=== PATIENT | male | born 2000 | race Caucasian/White ===

== ENCOUNTER 2020-01-16 08:32 | Day surgery (SDC) | payer SELFPAY ==
[2020-01-14 14:53] VITALS: BMI 26.3
[2020-01-16] MEDS ORDERED: Fentanyl 100 MCG/2 ML VIAL ONE ×2 (10:09→11:26)
[2020-01-16] MEDS ORDERED: Midazolam HCl 2 mg/2 ml Vial ONE ×2 (10:09→11:26)
[2020-01-16] MEDS ORDERED: Sodium Chloride 0.9% 10 ML ONE (11:28)
[2020-01-16] MEDS ORDERED: Bacitracin Zinc Ointment 30 gm TUBE ONE (11:28)
[2020-01-16] MEDS ORDERED: Bupivacaine PF 0.5% 30 ML VIAL ONE (11:28)
[2020-01-16] MEDS ORDERED: Bupivacaine HCl 0.5%/Epinephrine 1:200,000/PF 30 ml Vial ONE (12:31)
[2020-01-16] MEDS ORDERED: Ketorolac Tromethamine 30 MG/ML VIAL ONE (12:31)
[2020-01-16] MEDS ORDERED: Dexamethasone 20 MG/5 ML VIAL ONE (12:31)
[2020-01-16] MEDS ORDERED: Lidocaine 1% PF 5 ML VIAL ONE (12:31)
[2020-01-16] MEDS ORDERED: PROPOFOL 200 MG/20 ML VIAL ONE (12:31)
[2020-01-16] MEDS ORDERED: Ondansetron PF 4 MG/2 ML Vial ONE (12:31)
--- NOTE | 2020-01-16 14:10 | RAD ---
Left hand 3 views: HISTORY: ORIF left hand COMPARISON: 01/05/2020 FINDINGS: Metal plate and screws stabilize the fourth metacarpal. 3 internal fixation pins stabilize the fourth and fifth metacarpal hamate joints. IMPRESSION: Postoperative ORIF changes.
--- NOTE | 2020-01-18 19:18 | OP ---
DATE OF PROCEDURE: 01/16/2020 PREOPERATIVE DIAGNOSES: 1. Left small finger carpometacarpal joint dislocation. 2. Left ring finger carpometacarpal joint dislocation. 3. Ring finger metacarpal shaft fracture. 4. Hamate fracture, intra-articular. POSTOPERATIVE DIAGNOSES: 1. Left small finger carpometacarpal joint dislocation. 2. Left ring finger carpometacarpal joint dislocation. 3. Ring finger metacarpal shaft fracture. 4. Hamate fracture, intra-articular. FINDINGS: 1. Perched dislocation of small finger metacarpal with avulsion fracture of the hamate approximately 6 mm long, 3 mm deep, with capsule attached to it. 2. Approximately 50% subluxation of the ring finger metacarpal at the carpometacarpal joint with a 100% displaced angulated ring finger metacarpal shaft fracture. PROCEDURES PERFORMED: 1. C-arm supervision. 2. Open reduction and internal fixation of hamate avulsion fracture with K-wire. 3. Open reduction and internal fixation of dislocation of left small finger carpometacarpal joint with K-wire. 4. Open reduction and internal fixation of dislocation left ring finger carpometacarpal joint with K-wire. 5. Open reduction and internal fixation of metacarpal shaft fracture of left ring finger. TOURNIQUET TIME: 60 minutes. ESTIMATED BLOOD LOSS: 20 mL. DESCRIPTION OF PROCEDURE: After successful general endotracheal anesthesia, the limb was prepped and draped. The patient had a block performed already. We outlined a longitudinal incision to complete the approach to the ring finger metacarpal fracture and then come down to the midportion of the body of the hamate. We carried to the skin and subcutaneous tissue, protected appropriate extensor interval for the ring finger and removed periosteum. The fracture was displaced and reduced it anatomically with no evidence of malrotation, held this with a clamp. We then placed a 5-hole plate with 2 holes proximal and 3 holes distal to the fracture. Used standard drill measure and screw technique with [employer] variable angle handset. The patient then had the small finger and ring finger undergo reduction. First, we had to clean the small finger carpometacarpal joint to remove bone fragments. Discovered the displaced fragment, which was locking the joint and prevented closed reduction and had the capsule attached to it. We removed this. We irrigated the joint and then reduced both joints synchronously with an audible clunk. We then placed 0.045 K-wire across each joint. C-arm confirmed excellent position. We then placed a small 0.035 K-wire in avulsion fracture. C-arm helped us adjust position of this until it was excellent. We cut the pins just short of the bone interface, released the tourniquet, obtained hemostasis. We closed the capsule using a 2-0 Vicryl interrupted [id number]. We closed the skin with a running 4-0 Monocryl and the epidermis with interrupted 4-0 nylon in a mattress pattern. The patient had a splint applied and left the operating room without evidence of anesthetic or operative complication. Job ID: [id number]
== END 2020-01-16 16:34 | disposition home or self-care (01) ==
LOC: SDC 08:32
PROVIDERS: ATTEND Orthopaedic Surgery Hand Surgery
PROC: 0PSN04Z Reposition Left Carpal with Internal Fixation Device, Open Approach (ICD-10-PCS; principal; 2020-01-16)
PROC: 0RSU04Z Reposition Right Metacarpophalangeal Joint with Internal Fixation Device, Open Approach (ICD-10-PCS; principal; 2020-01-16)
DX: S62.324A Displaced fracture of shaft of fourth metacarpal bone, right hand, initial encounter for closed fracture (principal); S63.055A Dislocation of other carpometacarpal joint of left hand, initial encounter; S62.142A Displaced fracture of body of hamate [unciform] bone, left wrist, initial encounter for closed fracture; W22.8XXA Striking against or struck by other objects, initial encounter
CPT/HCPCS: 76000; C1713; J0670; J0690; J1100; J1885; J2250; J2405; J2704; J3010; J3490; S0020